=== PATIENT | male | born 1985 | race Caucasian/White ===

== ENCOUNTER 2021-06-17 20:24 | Emergency (ER) | payer OTHER ==
[~2021-06-17] VITALS: Ht 177 cm; Wt 115.0 kg
[2021-06-17] MEDS ORDERED: cloNIDine 0.1 MG (CATAPRES) TAB PO ONE (21:00)
[2021-06-17] MEDS ORDERED: hydrALAZINE (APESOLINE) 20 MG/ML VIAL IV ONE (21:00)
[2021-06-17] MEDS ORDERED: ASPIRIN 81 MG CHEW (CHILDREN'S ASA) PO ONE (21:00)
[2021-06-17 21:06] LABS: BASOPHILS # (AUTO) 0.1 10^3/uL (0.0-0.1); BASOPHILS % (AUTO) 1 % (0-10); EOSINOPHILS # (AUTO) 0.2 10^3/uL (0.0-0.3); EOSINOPHILS % (AUTO) 2 % (0-10); HEMATOCRIT 45 % (40-54); HEMOGLOBIN 14.7 g/dL (13.3-17.7); LYMPHOCYTES # (AUTO) 3.2 10^3/uL (1.0-4.0); LYMPHOCYTES % (AUTO) 32 % (12-44); MEAN CORPUSCULAR HEMOGLOBIN 27 pg (25-34); MEAN CORPUSCULAR HGB CONC 33 g/dL (32-36); MEAN CORPUSCULAR VOLUME 81 fL (80-99); MEAN PLATELET VOLUME 9.7 fL (9.0-12.2); MONOCYTES # (AUTO) 0.4 10^3/uL (0.0-1.0); MONOCYTES % (AUTO) 4 % (0-12); NEUTROPHILS # (AUTO) 6.2 10^3/uL (1.8-7.8); NEUTROPHILS % (AUTO) 61 % (42-75); PLATELET COUNT 291 10^3/uL (130-400); WHITE BLOOD COUNT 10.2 10^3/uL (4.3-11.0)
[2021-06-17 21:17] LABS: ALBUMIN 4.5 GM/DL (3.2-4.5); BILIRUBIN,TOTAL 0.6 MG/DL (0.1-1.0); CALCIUM 9.8 MG/DL (8.5-10.1); CREATININE SERUM 1.04 MG/DL (0.60-1.30); MAGNESIUM 1.9 MG/DL (1.6-2.4); POTASSIUM 3.4 MMOL/L (3.6-5.0); TOTAL PROTEIN 7.9 GM/DL (6.4-8.2)
[2021-06-17 21:23] LABS: INR 0.9 (0.8-1.4); PROTHROMBIN TIME PATIENT 12.9 SEC (12.2-14.7)
--- NOTE | 2021-06-17 21:37 | ED Chest Pain ---
General Chief Complaint: Cardiac/General Problems Stated Complaint: HIGH BLOOD PRESSURE, ANXIETY Nursing Triage Note: patient states approx 20 min prior to arrival he was sitting watching TV states chest felt cold, "empty feeling" states bp high, patient states this occurs with anxiety. History of Present Illness Date Seen by Provider: Jun 17, 2021 Time Seen by Provider: 20:45 Initial Comments 36-year-old male presents for hypertension and an empty feeling in his chest. He denies chest pain or tingling into his left arm or shoulder. He has a known history of anxiety and is not medicated at this time for it as he was doing well without medication. He does report a history of hypertension for which he takes lisinopril/hydrochlorothiazide for. He is also on medication for hypercholesterolemia. He denies a specific stressor that has caused the anxiety. He reports moving to [place] recently from [place]. Patient denies a family history of heart disease, he is not diabetic and denies using tobacco products. He has received both COVID vaccines. Timing/Duration: 1 hour Severity/Quality: mild Radiation: no radiation Prior CP/Workup: non-cardiac ASA po MEDICAL VAN DRIVER: No NTG SL MEDICAL VAN DRIVER: No Associated Symptoms: denies symptoms; No abdominal pain, No back pain, No diaphoresis, No dizziness, No fever/chills, No heartburn, No nausea/vomiting, No shortness of breath, No syncope, No weakness Allergies and Home Medications Allergies Coded Allergies: No Known Drug Allergies (Unverified , 06/17/21) Patient Home Medication List Home Medication List Reviewed: Yes Review of Systems Review of Systems Constitutional: no symptoms reported, see HPI Cardiovascular: See HPI, Chest Pain Psychiatric/Neurological: See HPI, Anxiety Past Aieqwry-Vgskbc-Rjqibo Hx Patient Social History Tobacco Use?: No Smoking Status: Former Smoker Use of E-Cig and/or Vaping dev: No Substance use?: No Alcohol Use?: No Pt feels they are or have been: No Immunizations Up To Date Influenza Vaccine Up-to-Date: No; Not Current Physical Exam Vital Signs Vital Signs - First Documented 06/17/21 20:41 Pulse 127 Resp 20 B/P (MAP) 206/141 (162) Pulse Ox 96 O2 Delivery Room Air Capillary Refill : Less Than 3 Seconds Height, Weight, BMI Height: '" Weight: lbs. oz. kg; 36.00 BMI Method: General Appearance: Anxious HEENT: PERRL/EOMI, TMs Normal, Normal ENT Inspection, Pharynx Normal Neck: Full Range of Motion, Normal Inspection, Non Tender, Supple Respiratory: Chest Non Tender, Lungs Clear, Normal Breath Sounds Cardiovascular: Regular Rate, Rhythm, No Edema, No JVD, No Murmur, Normal Peripheral Pulses, Tachycardia Gastrointestinal: Normal Bowel Sounds, Non Tender, Soft Extremity: Normal Capillary Refill, Normal Inspection, Normal Range of Motion, Non Tender, No Calf Tenderness, No Pedal Edema Neurologic/Psychiatric: Alert, Oriented x3, No Motor/Sensory Deficits, Normal Mood/Affect Skin: Normal Color, Warm/Dry Progress/Results/Core Measures Results/Orders Lab Results Laboratory Tests Test 06/17/21 20:40 Range/Units White Blood Count 10.2 4.3-11.0 10^3/uL Red Blood Count 5.51 4.30-5.52 10^6/uL Hemoglobin 14.7 13.3-17.7 g/dL Hematocrit 45 40-54 % Mean Corpuscular Volume 81 80-99 fL Mean Corpuscular Hemoglobin 27 25-34 pg Mean Corpuscular Hemoglobin Concent 33 32-36 g/dL Red Cell Distribution Width 13.2 10.0-14.5 % Platelet Count 291 130-400 10^3/uL Mean Platelet Volume 9.7 9.0-12.2 fL Immature Granulocyte % (Auto) 0 % Neutrophils (%) (Auto) 61 42-75 % Lymphocytes (%) (Auto) 32 12-44 % Monocytes (%) (Auto) 4 0-12 % Eosinophils (%) (Auto) 2 0-10 % Basophils (%) (Auto) 1 0-10 % Neutrophils # (Auto) 6.2 1.8-7.8 10^3/uL Lymphocytes # (Auto) 3.2 1.0-4.0 10^3/uL Monocytes # (Auto) 0.4 0.0-1.0 10^3/uL Eosinophils # (Auto) 0.2 0.0-0.3 10^3/uL Basophils # (Auto) 0.1 0.0-0.1 10^3/uL Immature Granulocyte # (Auto) 0.0 0.0-0.1 10^3/uL Prothrombin Time 12.9 12.2-14.7 SEC INR Comment 0.9 0.8-1.4 Activated Partial Thromboplast Time 33 24-35 SEC Sodium Level 139 135-145 MMOL/L Potassium Level 3.4 L 3.6-5.0 MMOL/L Chloride Level 102 98-107 MMOL/L Carbon Dioxide Level 24 21-32 MMOL/L Anion Gap 13 5-14 MMOL/L Blood Urea Nitrogen 13 7-18 MG/DL Creatinine 1.04 0.60-1.30 MG/DL Estimat Glomerular Filtration Rate 80 BUN/Creatinine Ratio 13 Glucose Level 143 H 70-105 MG/DL Calcium Level 9.8 8.5-10.1 MG/DL Corrected Calcium 9.4 8.5-10.1 MG/DL Magnesium Level 1.9 1.6-2.4 MG/DL Total Bilirubin 0.6 0.1-1.0 MG/DL Aspartate Amino Transf (AST/SGOT) 15 5-34 U/L Alanine Aminotransferase (ALT/SGPT) 16 0-55 U/L Alkaline Phosphatase 82 40-136 U/L Myoglobin 101.4 H 10.0-92.0 NG/ML Troponin I < 0.028 <0.028 NG/ML Total Protein 7.9 6.4-8.2 GM/DL Albumin 4.5 3.2-4.5 GM/DL My Orders Orders - BENY GREEN Cbc With Automated Diff (06/17/21 20:58) Magnesium (06/17/21 20:58) Chest 1 View, Ap/Pa Only (06/17/21 20:58) Ekg Tracing (06/17/21 20:58) Comprehensive Metabolic Panel (06/17/21 20:58) Myoglobin Serum (06/17/21 20:58) Protime With Inr (06/17/21 20:58) Partial Thromboplastin Time (06/17/21 20:58) Monitor-Rhythm Ecg Trace Only (06/17/21 20:58) Ed Iv/Invasive Line Start (06/17/21 20:58) Troponin I (06/17/21 20:58) Aspirin Chewable Tablet (Baby Aspirin Ch (06/17/21 21:00) Hydralazine Injection (Apresoline Inject (06/17/21 21:00) Clonidine Tablet (Catapres Tablet) (06/17/21 21:00) Alprazolam Tablet (Xanax Tablet) (06/17/21 22:00) Metoprolol Tartrate Injection (Lopressor (06/17/21 22:30) Medications Given in ED Current Medications Medications Dose Ordered Sig/Iggy Route Start Time Stop Time Status Last Admin Dose Admin Alprazolam 0.25 mg ONCE ONCE PO 06/17/21 22:00 06/17/21 22:01 DC 06/17/21 22:00 0.25 MG Aspirin 324 mg ONCE ONCE PO 06/17/21 21:00 06/17/21 21:01 DC 06/17/21 21:14 324 MG Clonidine HCl 0.1 mg ONCE ONCE PO 06/17/21 21:00 06/17/21 21:01 DC 06/17/21 21:14 0.1 MG Hydralazine HCl 10 mg ONCE ONCE IV 06/17/21 21:00 06/17/21 21:01 DC 06/17/21 21:15 10 MG Metoprolol Tartrate 5 mg ONCE ONCE IV 06/17/21 22:30 06/17/21 22:31 DC 06/17/21 22:48 5 MG Vital Signs/I&O 06/17/21 20:41 Pulse 127 Resp 20 B/P (MAP) 206/141 (162) Pulse Ox 96 O2 Delivery Room Air Blood Pressure Mean: 162 Progress Progress Note : Time: 20:45 Progress Note Patient seen and evaluated, will obtain labs, chest x-ray, and EKG. Will give hydralazine and clonidine for hypertension and tachycardia. 2130 blood pressure has decreased some, 160/102 at this time. Patient reports less anxiety however he is continuing to have heart rate from 90-110. He is talking to a friend on the phone, he does report that is calming for him. 2215 will give Metoprolol 5 mg IV for continued Tachy and hypertension. Patient feels anxiety is improved. 2305 HR 80s, B/P 150/90. Patient reports improvement in symptoms. Discharge instructions and return precautions reviewed with him. All questions answered. Initial ECG Impression Date: Jun 17, 2021 Initial ECG Impression Time: 21:11 Initial ECG Rate: 117 Initial ECG Rhythm: S.Tach Initial ECG Intervals: Normal Initial ECG Intervals DC 160, QRSD 90, QT 330, QTc 461. Union P 17, QRS -41, T4 69. Initial ECG Impression: Normal Initial ECG Comparisson: No Previous ECG Available Diagnostic Imaging Diagonstic Imaging: Xray Plain Films/CT/US/NM/MRI: chest Comments NAME: [facility]ES [facility] REC#: [id number] PT STATUS: REG ER : 1985 PHYSICIAN: BENY GREEN ADMIT DATE: 06/17/21/ER Draft Date of Exam:06/17/21 CHEST 1 VIEW, AP/PA ONLY INDICATION: Chest pain EXAM: Portable chest at 9:26 PM FINDINGS: The heart size and pulmonary vascularity are normal. The lungs are clear. There are no effusions or pneumothoraces. IMPRESSION: Negative chest. Dictated on workstation # [id number] Dict: 06/17/212132 Trans: 06/17/212133 [facility] [id number] Interpreted by: GABO FERNANDEZ MD Electronically signed by: Reviewed: Reviewed by Me Departure Impression Primary Impression: Hypertension Qualified Codes: I10 - Essential (primary) hypertension Additional Impression: Anxiety Disposition: HOME, SELF-CARE Condition: Stable Departure-Patient Inst. Decision time for Depature: 23:05 Patient Instructions: High Blood Pressure (DC) Add. Discharge Instructions: Continue your home medications as prescribed by your primary care provider. Follow-up with your primary care provider in the next 2 to 3 days. Take aspirin 81 mg once daily. Return to the emergency department for chest pain or other urgent healthcare problems. All discharge instructions reviewed with patient and/or family. Voiced understanding. BENY GREEN Jun 17, 2021 21:37
[2021-06-17] MEDS ORDERED: ALPRAZolam 0.25 MG (XANAX) TAB PO ONE (22:00)
[2021-06-17] MEDS ORDERED: meTOprolol 5 MG/5 ML (LOPRESSOR) VIAL IV ONE (22:30)
[2021-06-17 23:45] VITALS: BP 145/89
== END 2021-06-17 23:45 | disposition home or self-care (01) ==
LOC: ER 20:28
DX: I10 Essential (primary) hypertension (principal); F41.9 Anxiety disorder, unspecified; Z87.891 Personal history of nicotine dependence
CPT/HCPCS: 36415; 71045; 80053; 83735; 83874; 84484; 85025; 85610; 85730; 93005; 93041